=== PATIENT | male | born 2000 | race Caucasian/White ===

== ENCOUNTER 2021-02-24 20:23 | Emergency (ER) | payer OTHER ==
[~2021-02-24] VITALS: Ht 182.9 cm; Wt 63.5 kg
[2021-02-24 20:49] VITALS: BP 144/61
--- NOTE | 2021-02-24 20:49 | NUR ---
PT AMBULATED TO [facility]
--- NOTE | 2021-02-24 21:25 | NUR ---
Dr. Jordan examining patient.
[2021-02-24] MEDS ORDERED: FLONAS NS (21:33)
[2021-02-24 21:39] VITALS: BP 144/61
--- NOTE | 2021-02-24 21:40 | NUR ---
Patient discharged with v/s stable. Written and verbal after care instructions given and explained. Patient verbalized understanding. Ambulatory with steady gait. All questions addressed prior to discharge. Advised to follow up with PMD.
== END 2021-02-24 21:40 | disposition home or self-care (01) ==
LOC: MED 20:23
DX: H69.92 Unspecified Eustachian tube disorder, left ear (principal)
CPT/HCPCS: 99283